=== PATIENT | male | born 1995 | race African-American/Black ===

== ENCOUNTER 2021-02-27 08:14 | Emergency (ER) | payer OTHER ==
[~2021-02-27] VITALS: Ht 180.3 cm; Wt 83.3 kg
[2021-02-27] MEDS ORDERED: GI COCKTAIL 50ML BTL(HYOSCYAMINE/MAALOX/LIDOCAINE VISCOUS)(1:3:1) PO ONE (10:20)
[2021-02-27 10:42] LABS: BASO % 0.6 % (0.0-1.0); EOS # 0.1 10^3/uL (0.0-0.5); HEMATOCRIT 48.8 % (42.0-52.0); HEMOGLOBIN 15.1 g/dl (13.5-17.5); LYMPH # 2.5 10^3/uL (1.5-5.0); LYMPH % 41.2 % (24.0-44.0); MEAN CORPUSCULAR HEMOGLOBIN 27.1 pg (27.0-33.0); MEAN CORPUSCULAR HGB CONC 30.9 g/dl (32.0-36.5); MEAN CORPUSCULAR VOLUME 87.6 fl (80.0-96.0); MONO # 0.5 10^3/uL (0.0-0.8); MONO % 8.1 % (2.0-8.0); NEUTROPHILS % 48.8 % (36.0-66.0); PLATELET COUNT, AUTOMATED 212 10^3/uL (150-450); RED BLOOD COUNT 5.57 10^6/uL (4.30-6.10); WHITE BLOOD COUNT 6.2 10^3/uL (4.0-10.0)
--- NOTE | 2021-02-27 10:45 | REP ---
INDICATION: chest pain. COMPARISON: No comparison chest x-ray. TECHNIQUE: Two views.. FINDINGS: The lungs are well inflated and free of infiltrate. The pleural angles are sharp. The heart size is normal. Pulmonary vasculature is not increased. No significant bony abnormality is seen. There are granulomatous lymph node calcifications in the right hilus. IMPRESSION: No active cardiopulmonary disease.. <Electronically signed by Sergio Mcdowell > 02/27/21 1410
[2021-02-27 11:12] LABS: ALBUMIN 4.3 GM/DL (3.2-5.2); ALT/SGPT 42 U/L (12-78); BILIRUBIN,DIRECT 0.2 MG/DL (0.0-0.2); BILIRUBIN,TOTAL 0.8 MG/DL (0.2-1.0); BLOOD UREA NITROGEN 13 MG/DL (7-18); CALCIUM LEVEL 9.4 MG/DL (8.5-10.1); CARBON DIOXIDE LEVEL 32 MEQ/L (21-32); CHLORIDE LEVEL 107 MEQ/L (98-107); CREATININE FOR GFR 1.04 MG/DL (0.70-1.30); GLOMERULAR FILTRATION RATE > 60.0 (>60); GLUCOSE, FASTING 95 MG/DL (70-100); LIPASE 113 U/L (73-393); POTASSIUM SERUM 4.9 MEQ/L (3.5-5.1); SODIUM LEVEL 142 MEQ/L (136-145); TOTAL PROTEIN 7.7 GM/DL (6.4-8.2)
[2021-02-27 12:15] LABS: CK-MB VALUE MASS 2.1 NG/ML (<3.6); CPK CREATINE PHOSPHOKINASE 457 U/L (39-308); MB/CK RELATIVE INDEX 0.46 (< OR =4); TROPONIN I < 0.02 NG/ML (< 0.10)
[2021-02-27 12:37] VITALS: BP 125/65
[2021-02-27] MEDS ORDERED: OMEP40CA4 PO (13:49)
--- NOTE | 2021-02-27 17:37 | ECGEPIP ---
[facility] - ED Test Date: 2021-02-27 Pat Name: NAVIN GRADY Department: Room: - Gender: Male [employer]: : 1995 Requested By: SHABANA Bajwa PA-C Order Number: [id number] Reading MD: Dwayne Wagner Measurements Intervals [place] Rate: 49 P: 59 [place]: 180 QRS: 81 QRSD: 92 T: 61 QT: 420 QTc: 379 Interpretive Statements Sinus bradycardia Early repolarization Comparison tracing not on file Electronically Signed on 02-27-2021 17:37:27 EDT by Dwayne Wagner
== END 2021-02-27 12:40 | disposition home or self-care (01) ==
LOC: M ED 08:14
DX: R10.13 Epigastric pain (principal); R00.1 Bradycardia, unspecified